=== PATIENT | male | born 1975 | race Caucasian/White ===

== ENCOUNTER 2016-12-31 07:27 | Day surgery (SDC) | payer BC ==
[~2016-12-31 07:27] MED LIST: Buffered Lidocaine 0.9% SYRIN* 5 ML/SYR SYRINGE INTRADERM ONE; Famotidine IV* 10 MG/ML 2 ML (20 mg) IV ONE
[2016-12-31] MEDS ORDERED: Famotidine IV* 10 MG/ML 2 ML (20 mg) ONE (08:01)
[2016-12-31] MEDS ORDERED: Buffered Lidocaine 0.9% SYRIN* 5 ML/SYR SYRINGE ONE (08:01)
[2016-12-31] MEDS ORDERED: oxyCODONE/Acetamin 5/325 MG* TAB PO PRN (09:10)
[2016-12-31] MEDS ORDERED: fentaNYL* 50 MCG/ML 2 ML VIAL (100 MCG VIAL) IV PRN (09:10)
[2016-12-31] MEDS ORDERED: Scopolamine 1.5 mg* PATCH TRANSDERM PRN (09:10)
[2016-12-31] MEDS ORDERED: Morphine INJ* 2 MG/ML 1 ML SYRINGE IV PRN (09:10)
[2016-12-31] MEDS ORDERED: PROCHLORPERAZINE INJ 5 MG/ML 2 ML VIAL IV PRN (09:10)
[2016-12-31] MEDS ORDERED: Bupivacaine 0.5% W/EPI SDV* 10 ML VIAL INJ ONE (09:38)
[2016-12-31] MEDS ORDERED: Lidocaine 1% INJ* 10 MG/ML 30 ML SDV ONE (09:38)
[2016-12-31] MEDS ORDERED: KETAMINE HCL* 50 MG/ML 10 ML VIAL ONE (09:47)
[2016-12-31] MEDS ORDERED: fentaNYL* 50 MCG/ML 2 ML VIAL (100 MCG VIAL) ONE (09:47)
[2016-12-31] MEDS ORDERED: Midazolam* 1 MG/ML 10 ML VIAL (10 MG) ONE (09:47)
[2016-12-31] MEDS ORDERED: Lidocaine 2% PF * 5 ML VIAL ONE (10:13)
[2016-12-31] MEDS ORDERED: Lidocaine 2% JELLY* 6 ML JELLY TOPICAL ONE (10:13)
[2016-12-31] MEDS ORDERED: Propofol* 10 MG/ML 20 ML BTL IV PUSH ONE (10:13)
--- NOTE | 2016-12-31 10:45 | SURGPN ---
Brief Operative Note - Surgery Procedures: Procedures OPERATIVE REPORT PRE-OP: Anal abscess POST-OP: Anal abscess and anal fistula PROCEDURE: Anorectal exam under anesthesia, incision and drainage of anal abscess and Seton suture placement. SURGEON: MD Nica ANESTHESIA:Local with MAC [place] ASST: none IVF: min EBL: min SPECIMEN: none DRAIN: Two Seton sutures-blue vessel loops WOUND CLASS: 4 COMPLICATIONS: none TO PACU
[2016-12-31 12:03] VITALS: BP 124/84
--- NOTE | 2017-01-01 12:30 | OP ---
CC: Dr. Nabeel Renae * DATE OF OPERATION: 12/31/16 - [facility] DATE OF : 79 SURGEON: Miguel Yousif MD NURSING ASSOC: None. ANESTHESIOLOGIST: Gabriel Mcdaniel MD ANESTHESIA: Local with monitored anesthesia care. PRE-OP DIAGNOSIS: Right anal abscess. POST-OP DIAGNOSES: 1. Right anal abscess. 2. Right-sided anal fistula. OPERATIVE PROCEDURE: Anorectal exam under anesthesia with incision and drainage of small anal abscess as well as seton suture placement. INDICATIONS: Mr. Yonas Rizvi is a 41-year-old gentleman, who has had several right-sided perianal abscess over the past several years. More recently, he had a recurrence which spontaneously drained and was improving with antibiotics. In light of his history of recurrent abscess in a similar position , despite the fact that he is improving, he is being taken to the operating room today for an exam under anesthesia to rule out anal fistula and assure ourselves that the abscess was completely drained. ESTIMATED BLOOD LOSS: Minimal. SPECIMENS: None. COMPLICATIONS: None. WOUND CLASSIFICATION: IV. DRAINS: Seton suture placement. DESCRIPTION OF PROCEDURE: Written and informed consent was obtained and preoperative antibiotics were not administered. The patient was taken to the operating room, placed in the prone jackknife position and intravenous sedation was administered. Sequential compression devices and a warming blanket were applied. The perianal area and buttocks were prepped and draped in the usual sterile fashion. Time-out verification was completed. Initially, it was noticed that the external abscess at the right anal verge at about the 2 o'clock position with some induration, redness, and there was some expression of pus on palpation. Next 0.25% Marcaine mixed with 1% lidocaine was infiltrated in the right perianal area. A 15-blade knife was then used to open the abscess cavity opening, extending into the cavity, which was about 2 cm x 1 cm and extended to the anus. Next, a retractor was placed into the anal canal and looking at the right lateral anal canal upon palpating and pressure, there was an opening that expressed pus at about the dentate line also at about the 3 o'clock position. I used a probe from the external abscess cavity and it was difficult to identify the opening. I did confirm the communication using injecting hydrogen peroxide from the external abscess cavity using an Angiocath into the internal cavity and there was noted to be hydrogen peroxide expressed also from the site that I was seeing draining pus from the dentate line on the right. With more careful probing, I was able to find the fistulous tract that extended to the anus and I then placed two blue Vessel loops as seton sutures and these were tied together with 0 silk ties. The abscess cavity was not packed, it was quite small. I noted no other abnormalities on examination of the anal canal. There were no fissures or other fistulous openings noted. Dry sterile dressings were applied. The patient tolerated the procedure well and was taken to the recovery room in stable condition. [id number]/[facility] #: [id number] MTDD
[2017-01-03] MEDS ORDERED: Scopolomine PATCH Remove* 1 NOTE MISC PATCH OFF ONE (09:13)
== END 2016-12-31 12:03 | disposition home or self-care (01) ==
LOC: OR 07:27
PROVIDERS: ATTEND Surgery
DX: K61.0 Anal abscess (principal); J45.909 Unspecified asthma, uncomplicated
CPT/HCPCS: J2001; J2250; J2704; J3010